=== PATIENT | male | born 1975 | race Caucasian/White ===

== ENCOUNTER 2022-09-11 22:24 | Emergency (ER) | payer SELFPAY ==
[2022-09-12] MEDS ORDERED: ONDANSETRON 4 MG/2 ML VIAL ONE (00:02)
[2022-09-12] MEDS ORDERED: CLINDAMYCIN 900MG/D5W 900 MG/50 ML IVPB IV ONE (00:02)
[2022-09-12] MEDS ORDERED: KETOROLAC 30 MG/ML INJ ONE (00:02)
[2022-09-12] MEDS ORDERED: NA CHLORIDE 0.9% 1,000 ML ONE (00:02)
[2022-09-12] MEDS ORDERED: LIDOCAINE 1% MPF 30 ML VIAL ONE (00:02)
--- NOTE | 2022-09-12 02:48 | ER ---
Nurse's Notes [facility] Name: Salvador Cat Age: 46 yrs Sex: Male : 1975 Arrival Date: 09/11/2022 Time: 22:24 Bed 8 Private MD: Diagnosis: Gingival abscess, periodontal abscess, dental caries Presentation: 09/11 22:30 Chief complaint: Patient states: lower back pain and left jaw pain worse today on kl amoxicillin x 1 week without improvement. Coronavirus screen: Vaccine status: Patient reports being unvaccinated. Ebola Screen: Patient negative for fever greater than or equal to 101.5 degrees Fahrenheit, and additional compatible Ebola Virus Disease symptoms. Initial Sepsis Screen: Does the patient meet any 2 criteria? No. Patient's initial sepsis screen is negative. Does the patient have a suspected source of infection? Yes:. Risk Assessment: Do you want to hurt yourself or someone else? Patient reports no desire to harm self or others. 22:30 Method Of Arrival: EMS: [facility] 22:30 Acuity: BOBBY 3 kl 09/12 03:09 Onset of symptoms was September 09, 2022. ha1 Triage Assessment: 09/11 22:33 General: Appears distressed, uncomfortable, Behavior is cooperative. Pain: Complains of kl pain in left jaw. 22:34 EENT: swelling to left jaw line. kl Historical: - Allergies: 22:32 No Known Allergies; kl - Home Meds: 22:32 amoxicillin 500 mg Oral tablet 2 times per day [Active]; kl - PMHx: 22:32 hep c; kl - PSHx: 22:32 None; kl - Immunization history:: Adult Immunizations not immunized. - Social history:: Smoking status: Patient reports the use of cigarette tobacco products, smokes one-half pack cigarettes per day. - Family history:: not pertinent. Screenin:34 [facility] ED Fall Risk Assessment (Adult) History of falling in the last 3 months, ha1 including since admission No falls in past 3 months (0 pts) Confusion or Disorientation No (0 pts) Intoxicated or Sedated No (0 pts) Impaired Gait No (0 pts) Mobility Assist Device Used No (0 pt) Altered Elimination No (0 pt) Score/Fall Risk Level 0 - 2 = Low Risk Oriented to surroundings, Maintained a safe environment, Educated pt \T\ family on fall prevention, incl call for assistance when getting out of bed. 09/12 00:11 Abuse screen: Denies threats or abuse. Denies injuries from another. Nutritional ha1 screening: No deficits noted. Tuberculosis screening: No symptoms or risk factors identified. Assessment: 09/11 22:35 General: Appears uncomfortable, Behavior is cooperative. Pain: Complains of pain in ha1 left jaw Pain does not radiate. Pain currently is 10 out of 10 on a pain scale. Quality of pain is described as throbbing. Neuro: Level of Consciousness is awake, alert, obeys commands, Oriented to person, place, time, situation. Cardiovascular: Patient's skin is warm and dry. Respiratory: Airway is patent Respiratory effort is even, unlabored, Respiratory pattern is regular, symmetrical. GI: No signs and/or symptoms were reported involving the gastrointestinal system. Musculoskeletal: Circulation, motion, and sensation intact. Range of motion: intact in all extremities. 23:30 Reassessment: Patient and/or family updated on plan of care and expected duration. Pain ha1 level reassessed. Patient is alert, oriented x 3, equal unlabored respirations, skin warm/dry/pink. 09/12 00:30 Reassessment: Patient and/or family updated on plan of care and expected duration. Pain ha1 level reassessed. Patient is alert, oriented x 3, equal unlabored respirations, skin warm/dry/pink. Patient states feeling better. Patient states symptoms have improved. 01:30 Reassessment: Patient and/or family updated on plan of care and expected duration. Pain ha1 level reassessed. Patient is alert, oriented x 3, equal unlabored respirations, skin warm/dry/pink. 02:30 Reassessment: Patient and/or family updated on plan of care and expected duration. Pain ha1 level reassessed. Patient is alert, oriented x 3, equal unlabored respirations, skin warm/dry/pink. in the room performing procedure. Vital Signs: 09/11 22:30 Pulse 73; Resp 18; Temp 98.2(TE); Pulse Ox 100% on R/A; Weight 73.48 kg (R); Height 5 kl ft. 8 in. ; Pain 7/10; 23:00 BP 157 / 104; Pulse 75; Resp 16 S; Pulse Ox 100% on R/A; 1 09/12 00:00 BP 157 / 104; Pulse 70; Resp 16 S; Pulse Ox 98% on R/A; ha1 00:30 BP 140 / 92; Pulse 73; Resp 18 S; Pulse Ox 96% on R/A; ha1 01:00 BP 144 / 91; Pulse 68; Resp 16 S; Pulse Ox 98% on R/A; ha1 02:00 BP 158 / 92; Pulse 62; Resp 15 S; Pulse Ox 98% on R/A; ha1 09/11 22:30 Body Mass Index 24.63 (73.48 kg, 172.72 cm) 09/11 22:30 Pain Scale: Adult ED Course: 09/11 22:29 Patient arrived in ED. 22:32 Triage completed. 22:34 Arm band placed on right wrist. [facility] 22:34 Patient has correct armband on for positive identification. Bed in low position. Call [facility] light in reach. Side rails up X 1. 22:49 Donald Araujo MD is Attending Physician. sp4 23:30 Inserted saline lock: 22 gauge in left forearm, using aseptic technique. [facility] 09/12 01:02 Mable Nolen RN is Primary Nurse. 1 02:46 Catrachito Farfan DDS is Referral Physician. sp4 03:06 No provider procedures requiring assistance completed. IV discontinued, intact, ha1 bleeding controlled, No redness/swelling at site. Pressure dressing applied. 03:08 Provided Education on: following up on dental care.. ha1 Administered Medications: 09/11 23:40 Drug: Ondansetron IVP 4 mg Route: IVP; Site: left forearm; [facility] 09/12 00:00 Follow up: Response: No adverse reaction [facility] 09/11 23:43 Drug: Ketorolac IVP 30 mg Route: IVP; Site: left forearm; [facility] 09/12 00:00 Follow up: Response: No adverse reaction; Pain is decreased [facility] 09/11 23:45 Drug: NS 0.9% IV 1000 ml Route: IV; Rate: 1 bolus; Site: left forearm; [facility] 09/12 03:04 Follow up: Response: No adverse reaction; IV Status: Completed infusion; IV Intake: ha1 1000ml 09/11 23:45 Drug: Clindamycin IVPB 900 mg Route: IVPB; Infused Over: 30 mins; Site: left forearm; ha1 09/12 00:15 Follow up: Response: No adverse reaction; IV Status: Completed infusion; IV Intake: [id number] 02:30 Drug: Lidocaine Infiltration (1 %) 30 ml Volume: 20 ml; Route: Infiltration; ha1 03:04 Follow up: Response: No adverse reaction ha1 02:50 Drug: Acetaminophen PO 1000 mg Route: PO; ha1 03:05 Follow up: Response: No adverse reaction ha1 02:50 Drug: Clindamycin PO 300 mg Route: PO; ha1 03:05 Follow up: Response: No adverse reaction ha1 Medication: 03:08 VIS not applicable for this client. ha1 Intake: 00:15 IV: 50ml; Total: 50ml. ha1 03:04 IV: 1000ml; Total: 1050ml. ha1 Outcome: 02:47 Discharge ordered by . sp4 03:06 Discharged to home ambulatory. ha1 03:06 Condition: stable 03:06 Discharge instructions given to patient, Instructed on discharge instructions, follow up and referral plans. medication usage, Demonstrated understanding of instructions, follow-up care, medications, Prescriptions given X 2. 03:09 Patient left the ED. ha1 Signatures: Shawnee Paulino RN RN kl Ayala, Heidy, RN RN ha1 Potepalov, Sergey, MD MD sp4 Corrections: (The following items were deleted from the chart) 09/11 22:33 22:32 PMHx: None; erika james
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
[2022-09-12] MEDS ORDERED: ACETAMINOPHEN 500 MG TAB ONE (03:05)
[2022-09-12 04:21] VITALS: TEMP 98.2
[2022-09-12 04:28] VITALS: O2SAT 98
[2022-09-12 04:30] VITALS: BP 158/92
== END 2022-09-12 03:09 | disposition home or self-care (01) ==
LOC: ER 22:24
PROC: 0C9 Mouth and Throat, Drainage (ICD-10-PCS; principal; 2022-09-12)
DX: K04.7 Periapical abscess without sinus (principal); K02.9 Dental caries, unspecified
CPT/HCPCS: 82947; 96361; 96365; 96375; 99284